=== PATIENT | female | born 1960 | race Caucasian/White ===

== ENCOUNTER → 2018-02-11 08:02 | Outpatient (CLI) | payer MEDICARE | END | disposition home or self-care (01) | LOC: D.MRI 08:02 | DX: M79.662 Pain in left lower leg (principal) ==

== ENCOUNTER → 2018-03-04 09:03 | Outpatient (CLI) | payer MEDICARE | END | disposition home or self-care (01) | LOC: D.MRI 09:03 | DX: M79.671 Pain in right foot (principal) ==

== ENCOUNTER → 2018-08-24 14:11 | Outpatient (CLI) | payer MEDICARE | END | disposition home or self-care (01) | LOC: D.MRI 14:11 | DX: M25.552 Pain in left hip (principal); M25.562 Pain in left knee ==

== ENCOUNTER 2019-04-04 08:00 | Outpatient (CLI) | payer MEDICARE | END 2019-04-04 16:30 | disposition home or self-care (01) | LOC: D.MAMMO 08:00 | PROVIDERS: ATTEND Clinical Nurse Specialist Family Health | DX: Z12.31 Encounter for screening mammogram for malignant neoplasm of breast (principal) ==

== ENCOUNTER 2019-05-03 09:00 | Outpatient (CLI) | payer MEDICARE | END 2019-05-03 09:30 | disposition home or self-care (01) | LOC: D.MAMMO 09:00 | PROVIDERS: ATTEND Clinical Nurse Specialist Family Health | DX: R92.8 Other abnormal and inconclusive findings on diagnostic imaging of breast (principal) ==

== ENCOUNTER → 2019-07-17 12:58 | Outpatient (CLI) | payer OTHER | END | disposition home or self-care (01) | LOC: D.RAD 12:58 | PROVIDERS: ATTEND Pediatrics | DX: Z02.71 Encounter for disability determination (principal) ==